=== PATIENT | female | born 1980 | race Caucasian/White ===

== ENCOUNTER 2017-01-19 09:54 | Emergency (ER) | payer OTHER ==
[~2017-01-19] VITALS: Ht 167.6 cm; Wt 113.6 kg
[~2017-01-19 09:54] MED LIST: /CIPR75TA OR; /RANI15TA PO; ACET500T PO; ACET50TAOT PO; ADVI200T PO; ALBU17IN INH; ALBU17IN2 INH; AMBI10TA PO; ATIV0.5T3 PO; Ativan PO; BIRTH CONTROL PILL PO; BRIN10TA PO; BRIN20TA PO; CELE20TA; CELE20TA PO; CELE40TA; CETI10TA PO; CLIN150C14 PO; DEPA250T2 PO; DOXY150C PO; FLEXERIL; GABA-283 PO; GABA300T; GABA600T3; GABA600T3 PO; GABA800T PO; HYDR-3363 PO; HYDR50TA70 PO; LEXA1TAB PO; LIMBREL PO; LYRI150C PO; MOTR200T44 PO; NECON PO; OMEP20CA3 PO; OMEP40CA2 PO; PERC5TAB12 PO; PREG100CA PO; RANI150T PO; RANI15TA PO; ROBA750T; RYZOLT; SAVELLA PO; VIC; VICO5TAB OR; VISTARIL PO; YAZ3TAB2; ZITHTAB PO; [UNRECOGNIZED DRUG - OTHER]; [UNRECOGNIZED DRUG - REMARK] PO
[2017-01-19] MEDS ORDERED: ZYPR10TA PO (10:13)
[2017-01-19] MEDS ORDERED: PRAZ2CAP PO (10:13)
[2017-01-19] MEDS ORDERED: MIRT15TA3 PO (10:13)
[2017-01-19] MEDS ORDERED: SYNT50TA PO (10:13)
[2017-01-19] MEDS ORDERED: NAPR500T PO (10:13)
[2017-01-19] MEDS ORDERED: PRIL20CA9 PO (10:13)
[2017-01-19] MEDS ORDERED: atarax (10:13)
[2017-01-19] MEDS ORDERED: CLAR1TAB2 PO (10:13)
[2017-01-19] MEDS ORDERED: PROZ10CA7 PO (10:13)
[2017-01-19 11:41] LABS: BASO # 0.1 K/mm3 (0.0-0.2); BASO % 1.2 % (0.0-1.0); EOS # 0.2 K/mm3 (0.0-0.50); EOS % 2.9 % (0.0-3.0); LARGE UNSTAINED CELL # 0.4 K/mm3 (0.0-0.4); LARGE UNSTAINED CELL % 5.8 % (0.0-4.0); LYMPH # 1.5 K/mm3 (1.5-4.5); LYMPH % 20.8 % (24.0-44.0); MEAN CORPUSCULAR HEMOGLOBIN 29.2 pg (27.0-33.0); MEAN CORPUSCULAR HGB CONC 33.8 g/dl (32.0-36.5); MEAN CORPUSCULAR VOLUME 86.3 fl (80.0-96.0); MONO # 0.5 K/mm3 (0.0-0.8); MONO % 6.9 % (0.0-5.0); NEUTROPHILS # 4.4 K/mm3 (1.8-7.7); NEUTROPHILS % 62.4 % (36.0-66.0); PLATELET COUNT, AUTOMATED 444 k/mm3 (150-450); RED CELL DISTRIBUTION WIDTH 14.8 % (11.5-14.5); WHITE BLOOD COUNT 7.1 K/mm3 (4.0-10.0)
[2017-01-19 12:22] LABS: ALBUMIN 3.6 GM/DL (3.2-5.2); ALBUMIN/GLOBULIN RATIO 1.24 (1.00-1.93); ALKALINE PHOSPHATASE 93 U/L (45-117); ALT/SGPT 33 U/L (12-78); AST/SGOT 22 U/L (15-37); BILIRUBIN,DIRECT < 0.1 MG/DL (0.0-0.2); BILIRUBIN,TOTAL 0.2 MG/DL (0.2-1.0); FREE T4 0.79 NG/DL (0.76-1.46); TOTAL PROTEIN 6.5 GM/DL (6.4-8.2)
[2017-01-19 14:00] LABS: METHADONE URINE NEGATIVE (NEGATIVE)
[2017-01-19 14:02] VITALS: BP 112/71
[2017-01-19] MEDS ORDERED: LEVO75TA4 PO (14:09)
--- NOTE | 2017-01-20 09:15 | ECGEPIP ---
Stationary ECG Study [facility] - ED Test Date: 2017-01-19 Pat Name: ROCÍO CLEANING Department: Room: - Gender: F [employer] Trimmer: marquis : [id number] Requested By: Krishna Whitaker Order Number: [id number] Reading MD: Loida Jacob Measurements Intervals [place] Rate: 90 P: 32 PA: 155 QRS: -1 QRSD: 85 T: 18 QT: 348 QTc: 427 Interpretive Statements SINUS RHYTHM LOW QRS VOLTAGE IN PRECORDIAL LEADS PATTERN CONSISTENT WITH PULMONARY DISEASE MINIMAL VOLTAGE CRITERIA FOR LVH, CONSIDER NORMAL VARIANT INCREASED RATE 05/20/16 Electronically Signed On 01-20-2017 9:15:24 EDT by Loida Jacob
== END 2017-01-19 14:30 | disposition home or self-care (01) ==
LOC: M ED 10:31
DX: E03.9 Hypothyroidism, unspecified (principal); E66.9 Obesity, unspecified; F19.90 Other psychoactive substance use, unspecified, uncomplicated; Z95.0 Presence of cardiac pacemaker; Z79.899 Other long term (current) drug therapy; Z88.1 Allergy status to other antibiotic agents; Z88.5 Allergy status to narcotic agent; Z91.040 Latex allergy status; Z88.0 Allergy status to penicillin; Z88.8 Allergy status to other drugs, medicaments and biological substances

== ENCOUNTER → 2017-02-18 | Outpatient (CLI) | payer OTHER ==
[~2017-02-18] MED LIST changes: +CLAR1TAB2 PO; +LEVO75TA4 PO; +MIRT15TA3 PO; +NAPR500T PO; +PRAZ2CAP PO; +PRIL20CA9 PO; +PROZ10CA7 PO; +SYNT50TA PO; +ZYPR10TA PO; +atarax
== END ==
LOC: M WUC 14:07
PROVIDERS: ATTEND Psychiatry & Neurology Psychiatry
DX: Z51.81 Encounter for therapeutic drug level monitoring (principal)

== ENCOUNTER → 2017-03-03 | Outpatient (CLI) | payer OTHER | LOC: M WUC 09:13 | PROVIDERS: ATTEND Physician Assistant Medical | DX: E03.9 Hypothyroidism, unspecified (principal) ==

== ENCOUNTER → 2017-03-09 | Outpatient (CLI) | payer OTHER ==
--- NOTE | 2017-03-09 14:20 | REP ---
Left foot two views There are no comparisons : There is no fracture or dislocation. Mineralization and joint spaces are normal. There are no calcifications or foreign bodies. Impression: Negative left foot . Signed by Arcadio Mcghee MD 03/09/2017 02:11 P
== END ==
LOC: M WUC 13:38
PROVIDERS: ATTEND Surgery
DX: M79.672 Pain in left foot (principal)

== ENCOUNTER → 2017-03-31 | Outpatient (CLI) | payer OTHER | LOC: M WUC 13:20 | PROVIDERS: ATTEND Physician Assistant Medical | DX: E03.9 Hypothyroidism, unspecified (principal) ==

== ENCOUNTER → 2017-05-01 | Outpatient (CLI) | payer OTHER | LOC: M WUC 13:53 | PROVIDERS: ATTEND Psychiatry & Neurology Psychiatry | DX: Z51.81 Encounter for therapeutic drug level monitoring (principal) ==

== ENCOUNTER → 2020-08-27 | Outpatient (CLI) | payer MEDICAID ==
[~2020-08-27] MED LIST changes: -/RANI15TA PO; +ACET500T15 PO; -ACET50TAOT PO; -CLIN150C14 PO; +CLIN150C15 PO; -GABA-283 PO; +GABA-845 PO; -GABA800T PO; +GABA800T4 PO; +NAPR-837 PO; -NAPR500T PO; -OMEP40CA2 PO; +OMEP40CA97 PO; +RANI1TAB17 PO
== END ==
LOC: M OUTALCOH 08:19
PROVIDERS: ATTEND Psychiatry & Neurology Psychiatry
DX: Z03.89 Encounter for observation for other suspected diseases and conditions ruled out (principal)

== ENCOUNTER 2020-09-04 14:55 | Outpatient (RCR) | payer MEDICAID | END 2020-09-30 | LOC: M OUTALCOH 14:55 | PROVIDERS: ATTEND Psychiatry & Neurology Psychiatry | DX: F17.200 Nicotine dependence, unspecified, uncomplicated (principal); F11.10 Opioid abuse, uncomplicated ==

== ENCOUNTER 2020-09-16 20:23 | Emergency (ER) | payer MEDICAID, OTHER ==
[~2020-09-16] VITALS: Ht 165.1 cm; Wt 79.1 kg
--- OUTSIDE RECORDS SUMMARY | 2020-09-16 20:29 | CCD ---
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 Intraperitoneal space: Unremarkable. No free air.No drainable fluid collection. Vasculature: Unremarkable. No abdominal aortic aneurysm. Lymph nodes:Unremarkable. No enlarged lymph nodes. Bladder: Partially contracted. Reproductive: Uterus notidentified, correlate with surgical history. Bones/joints: Unremarkable. No acute fracture. Soft tissues:Unremarkable. IMPRESSION: Apparent thickening of the transverse and descending colon, probablyexaggerated by underdistention. Correlate for mild infectious/inflammatory colitis. Correlate clinically. Name Value Range Interpretation Code Description Data Tara rce(s) Supporting Document(s) ID Date Data Source [id number] 07/31/2019 05:53:00 PM [facility] PROCEDURE INFORMATION: Exam: XR Chest, 1 View Exam date and time: 07/31/2019 6:21 PM Age: 39 years old Clinical indication: Visit reason: Abd pain; TECHNIQUE: Imaging protocol: XR of the chestViews: 1 view. COMPARISON: No relevant prior studies available. FINDINGS: Tubes,catheters and devices: Permanent pacemaker. Lungs: Unremarkable. No consolidation. Pleural space:Unremarkable. No pleural effusion. No pneumothorax. Heart/Mediastinum: Unremarkable. No cardiomegaly.Bones/joints: No acute findings. IMPRESSION: No acute findings. Name Value Range Interpretation Code Description Data Tara rce(s) Supporting Document(s) Procedure Vital Signs ID Date Data Source UNK Name Value Range Interpretation Code Description Data Source(s) Body temperature 97.9 [degF] 0 - 200 Normal (applies to non-n umeric results) 97.9 [degF] [facility] Body temperature 36.6 Dodie 0 - 99.9 Normal (applies to non-n umeric results) 36.6 Dodie [facility] Diastolic blood pressure 76 mm[Hg] 0 - 999 Normal (applies to non-numeric results) 76 mm[Hg] [facility] Systolic blood pressure 107 mm[Hg] 0 - 999 Below low normal 107 mm [Hg] [facility] Oxygen saturation in Arterial blood by Pulse oximetry 97 % 0 - 999 Normal (applies to non-numeric results) 97 % [facility] tem Respiratory rate 17 0 - 999 Normal (applies to non-numeric results) 17 [facility] Heart rate 62 0 - 999 Normal (applies to non-numeric resul ts) 62 [facility] Body surface area Derived from formula 1.9 m2 1.9 m2 [facility] Body mass index (BMI) [Ratio] 31.6 kg/m2 31.6 k g/m2 [facility] Body weight 88.9 kg 88.9 kg [facility] Body height 167.64 cm 167.64 cm [facility] Patient Treatment Plan of Care Planned Activity Planned Date Details Description Data Source (s) Ciprofloxacin 500 MG Oral Tablet [Cipro] 07/31/2019 09:51:31 PM EST [facility]
[2020-09-16 21:01] VITALS: BP 155/66
[2020-09-16] MEDS ORDERED: NALOXONE 2MG/2ML SYRINGE (J2310 PER 1MG) IM STA (21:04)
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
[2020-09-16] MEDS ORDERED: ACETAMINOPHEN 325 MG TAB PO ONE (21:15)
== END 2020-09-16 21:20 | disposition home or self-care (01) ==
LOC: M ED 20:23
DX: T40.601A Poisoning by unspecified narcotics, accidental (unintentional), initial encounter (principal); X58.XXXA Exposure to other specified factors, initial encounter; Y92.89 Other specified places as the place of occurrence of the external cause; Z95.0 Presence of cardiac pacemaker; Z79.899 Other long term (current) drug therapy; Z88.0 Allergy status to penicillin; Z88.1 Allergy status to other antibiotic agents; Z88.5 Allergy status to narcotic agent; Z88.8 Allergy status to other drugs, medicaments and biological substances; Z91.040 Latex allergy status; Z87.891 Personal history of nicotine dependence
CPT/HCPCS: 96372; 99284; J2310

== ENCOUNTER 2020-09-19 13:37 | Outpatient (RCR) | payer MEDICAID | END 2020-09-30 | LOC: M OUTALCOH 13:37 | PROVIDERS: ATTEND Psychiatry & Neurology Psychiatry | DX: F17.200 Nicotine dependence, unspecified, uncomplicated (principal); F11.10 Opioid abuse, uncomplicated ==

== ENCOUNTER → 2020-09-19 | Outpatient (CLI) | payer MEDICAID | LOC: M OUTALCOH 08:17 | PROVIDERS: ATTEND Psychiatry & Neurology Psychiatry | DX: Z02.89 Encounter for other administrative examinations (principal) ==

== ENCOUNTER 2020-09-27 10:00 | Outpatient (RCR) | payer MEDICAID | END 2020-09-30 | LOC: M OUTALCOH 10:00 | PROVIDERS: ATTEND Psychiatry & Neurology Psychiatry | DX: F11.10 Opioid abuse, uncomplicated (principal); F17.200 Nicotine dependence, unspecified, uncomplicated ==

== ENCOUNTER → 2020-10-11 | Outpatient (CLI) | payer MEDICAID ==
[2020-10-11 14:36] LABS: BASO # 0.1 10^3/uL (0.0-0.2); BASO % 0.7 % (0.0-1.0); EOS # 0.1 10^3/uL (0.0-0.5); EOS % 0.7 % (0.0-3.0); HEMATOCRIT 42.5 % (36.0-47.0); HEMOGLOBIN 14.1 g/dl (12.0-15.5); LYMPH # 1.6 10^3/uL (1.5-5.0); LYMPH % 14.9 % (24.0-44.0); MEAN CORPUSCULAR HGB CONC 33.2 g/dl (32.0-36.5); MEAN CORPUSCULAR VOLUME 96.4 fl (80.0-96.0); MONO # 0.8 10^3/uL (0.0-0.8); MONO % 7.9 % (2.0-8.0); NEUTROPHILS # 8.1 10^3/uL (1.5-8.5); NEUTROPHILS % 75.4 % (36.0-66.0); PLATELET COUNT, AUTOMATED 313 10^3/uL (150-450); RED BLOOD COUNT 4.41 10^6/uL (4.00-5.40); WHITE BLOOD COUNT 10.7 10^3/uL (4.0-10.0)
[2020-10-11 15:05] LABS: HCG, SERUM QUALITATIVE NEGATIVE (NEGATIVE)
[2020-10-11 15:06] LABS: ALBUMIN 4.1 GM/DL (3.2-5.2); ALT/SGPT 14 U/L (12-78); BILIRUBIN,DIRECT 0.1 MG/DL (0.0-0.2); BILIRUBIN,TOTAL 0.3 MG/DL (0.2-1.0); BLOOD UREA NITROGEN 9 MG/DL (7-18); CARBON DIOXIDE LEVEL 25 MEQ/L (21-32); CHLORIDE LEVEL 111 MEQ/L (98-107); CHOLESTEROL LEVEL 139 MG/DL (<200); CHOLESTEROL RISK RATIO 2.673 (<5); CREATININE FOR GFR 0.81 MG/DL (0.55-1.30); GLOMERULAR FILTRATION RATE > 60.0 (>60); GLUCOSE, FASTING 89 MG/DL (70-100); HDL CHOLESTEROL 52 MG/DL (>40); LDL CHOLESTEROL 70 MG/DL (<100); NON-HDL-C 87 MG/DL; POTASSIUM SERUM 4.1 MEQ/L (3.5-5.1); SODIUM LEVEL 141 MEQ/L (136-145); TOTAL PROTEIN 7.1 GM/DL (6.4-8.2); TRIGLYCERIDES LEVEL 86 MG/DL (<150)
== END ==
LOC: M PLALAB 12:33
PROVIDERS: ATTEND Psychiatry & Neurology Psychiatry
DX: F17.200 Nicotine dependence, unspecified, uncomplicated (principal); F11.10 Opioid abuse, uncomplicated

== ENCOUNTER → 2020-10-31 | Outpatient (RCR) | payer MEDICAID | LOC: M OUTALCOH 10-01 13:04 | PROVIDERS: ATTEND Psychiatry & Neurology Psychiatry | DX: F11.10 Opioid abuse, uncomplicated (principal); F17.200 Nicotine dependence, unspecified, uncomplicated ==

== ENCOUNTER → 2020-11-05 | Outpatient (CLI) | payer MEDICAID, OTHER ==
[2020-11-05 19:04] LABS: ALBUMIN 4.2 GM/DL (3.2-5.2); ALT/SGPT 21 U/L (12-78); BILIRUBIN,DIRECT 0.1 MG/DL (0.0-0.2); BILIRUBIN,TOTAL 0.3 MG/DL (0.2-1.0); BLOOD UREA NITROGEN 7 MG/DL (7-18); CALCIUM LEVEL 9.4 MG/DL (8.5-10.1); CARBON DIOXIDE LEVEL 28 MEQ/L (21-32); CHLORIDE LEVEL 106 MEQ/L (98-107); CHOLESTEROL LEVEL 161 MG/DL (<200); CHOLESTEROL RISK RATIO 2.555 (<5); CREATININE FOR GFR 0.72 MG/DL (0.55-1.30); GLOMERULAR FILTRATION RATE > 60.0 (>60); GLUCOSE, FASTING 87 MG/DL (70-100); HDL CHOLESTEROL 63 MG/DL (>40); LDH LACTATE DEHYDROGENASE 174 U/L (84-246); LDL CHOLESTEROL 85 MG/DL (<100); NON-HDL-C 98 MG/DL; POTASSIUM SERUM 4.2 MEQ/L (3.5-5.1); SODIUM LEVEL 139 MEQ/L (136-145); THYROID STIMULATING HORMONE 0.966 uIU/ML (0.358-3.740); TOTAL PROTEIN 7.2 GM/DL (6.4-8.2); TRIGLYCERIDES LEVEL 63 MG/DL (<150)
== END ==
LOC: M PLALAB 13:54
PROVIDERS: ATTEND Internal Medicine Interventional Cardiology
DX: Z95.0 Presence of cardiac pacemaker (principal); I10 Essential (primary) hypertension; E78.5 Hyperlipidemia, unspecified; E03.9 Hypothyroidism, unspecified

== ENCOUNTER 2020-11-28 08:00 | Outpatient (RCR) | payer MEDICAID, OTHER | END 2020-11-30 | LOC: M OUTALCOH 08:00 | PROVIDERS: ATTEND Psychiatry & Neurology Psychiatry | DX: F11.10 Opioid abuse, uncomplicated (principal); F17.200 Nicotine dependence, unspecified, uncomplicated ==

== ENCOUNTER → 2022-03-06 | Outpatient (CLI) | payer OTHER ==
[~2022-03-06] MED LIST changes: -CLIN150C15 PO; +CLIN150C17 PO; +GABA-283 PO; -GABA-845 PO; +ISOVUE-300 61% 50ML VIAL As Ordered ONE; +LIDOCAINE 1% MDV 20ML VIAL As Ordered ONE; +OMEP40CA4 PO; -OMEP40CA97 PO
== END ==
LOC: M RADPRO 09:34
PROVIDERS: ATTEND Physician Assistant
DX: M24.10 Other articular cartilage disorders, unspecified site (principal); M25.561 Pain in right knee
CPT/HCPCS: 27369; 73580; 73701; Q9967

== ENCOUNTER → 2022-04-14 | Outpatient (REF) | payer OTHER ==
[~2022-04-14] MED LIST changes: -ISOVUE-300 61% 50ML VIAL As Ordered ONE; -LIDOCAINE 1% MDV 20ML VIAL As Ordered ONE
[2022-04-14 19:57] LABS: APPEARANCE, URINE MANUAL CLEAR (CLEAR); COLOR, URINE MANUAL DK YELLOW (YELLOW)
[2022-04-14 19:58] LABS: BILIRUBIN, URINE MANUAL NEGATIVE (NEGATIVE); BLOOD URINE MANUAL NEGATIVE (NEGATIVE); GLUCOSE, URINE (UA) MANUAL NEGATIVE (NEGATIVE); KETONE, URINE MANUAL NEGATIVE (NEGATIVE); LEUKOCYTE ESTERASE, URINE MAN TRACE (NEGATIVE); NITRITE, URINE MANUAL NEGATIVE (NEGATIVE); PROTEIN, URINE MANUAL TRACE mg/dL (NEGATIVE); SPECIFIC GRAVITY,URINE MANUAL 1.015 (1.002-1.035); UROBILINOGEN, URINE MANUAL NORMAL (NORMAL)
[2022-04-14 20:18] LABS: BACTERIA, URINE NONE SEEN; HYALINE CAST, URINE NONE SEEN /lpf (0-1); MUCUS, URINE MOD AMOUNT (NEGATIVE); RBC, URINE NONE SEEN /hpf (0-3); SQUAMOUS EPITHELIAL CELL URINE SMALL AMOUNT /hpf (SMALL AMT)
== END ==
LOC: M SMT 16:40
PROVIDERS: ATTEND Urology
DX: R32 Unspecified urinary incontinence (principal)

== ENCOUNTER → 2022-05-11 | Outpatient (CLI) | payer MEDICAID, OTHER ==
[~2022-05-11] MED LIST changes: +ADDE12.5 PO; +ALBU8.5H; +ATEN50TA2 PO; +CLON0.2T PO; +GABA600T4 PO; +MULT-90 PO; +OXYB10TA23 PO; +SUBO8MIS SL; +TIZA10TA PO
== END ==
LOC: M LABSMTC 10:50
PROVIDERS: ATTEND Anesthesiology
DX: Z01.812 Encounter for preprocedural laboratory examination (principal); Z20.822 Contact with and (suspected) exposure to COVID-19

== ENCOUNTER 2022-05-14 09:24 | Day surgery (SDC) | payer OTHER ==
[~2022-05-14] VITALS: Ht 165.1 cm; Wt 67.5 kg
[~2022-05-14 09:24] MED LIST changes: +NS 1,000 ML IV ONE
[2022-05-14] MEDS ORDERED: propofoL 200 MG/20 ML VIAL As Ordered ONE (10:01)
[2022-05-14] MEDS ORDERED: LIDOCAINE 2% 100MG/5ML SDV (FOR ANES.) As Ordered ONE (10:01)
[2022-05-14] MEDS ORDERED: fentaNYL 100 MCG/2 ML INJECTION As Ordered ONE (10:13)
[2022-05-14] MEDS ORDERED: ePHEDrine SULFATE 25 MG/5 ML(5MG/ML) SYRINGE As Ordered ONE (10:41)
[2022-05-14 11:23] VITALS: BP 140/79
== END 2022-05-14 11:47 | disposition home or self-care (01) ==
LOC: M OPP 09:24
PROVIDERS: ATTEND Internal Medicine Gastroenterology
DX: Z12.11 Encounter for screening for malignant neoplasm of colon (principal); Z86.010 Personal history of colon polyps; Z80.0 Family history of malignant neoplasm of digestive organs; K22.89 Other specified disease of esophagus; K44.9 Diaphragmatic hernia without obstruction or gangrene; K22.70 Barrett's esophagus without dysplasia; Z79.891 Long term (current) use of opiate analgesic; Z79.899 Other long term (current) drug therapy; Z88.0 Allergy status to penicillin; Z88.1 Allergy status to other antibiotic agents; Z88.8 Allergy status to other drugs, medicaments and biological substances; Z80.41 Family history of malignant neoplasm of ovary; Z80.49 Family history of malignant neoplasm of other genital organs; Z95.5 Presence of coronary angioplasty implant and graft; J45.909 Unspecified asthma, uncomplicated
CPT/HCPCS: 43239; 45378; 88305; J3010

== ENCOUNTER → 2022-07-09 | Outpatient (CLI) | payer OTHER ==
[~2022-07-09] MED LIST changes: -NS 1,000 ML IV ONE
[2022-07-09 15:18] LABS: BASO # 0.1 10^3/uL (0.0-0.2); BASO % 0.9 % (0.0-1.0); EOS # 0.3 10^3/uL (0.0-0.5); EOS % 4.4 % (0.0-3.0); HEMATOCRIT 36.7 % (36.0-47.0); HEMOGLOBIN 12.1 g/dl (12.0-15.5); LYMPH # 1.9 10^3/uL (1.5-5.0); LYMPH % 29.8 % (24.0-44.0); MEAN CORPUSCULAR HEMOGLOBIN 30.8 pg (27.0-33.0); MEAN CORPUSCULAR VOLUME 93.4 fl (80.0-96.0); MONO # 0.7 10^3/uL (0.0-0.8); MONO % 10.1 % (2.0-8.0); NEUTROPHILS # 3.5 10^3/uL (1.5-8.5); NEUTROPHILS % 54.6 % (36.0-66.0); PLATELET COUNT, AUTOMATED 252 10^3/uL (150-450); RED BLOOD COUNT 3.93 10^6/uL (4.00-5.40); WHITE BLOOD COUNT 6.4 10^3/uL (4.0-10.0)
[2022-07-09 15:52] LABS: ALBUMIN 3.1 G/DL (3.2-5.2); ALKALINE PHOSPHATASE 82 U/L (46-116); ALT/SGPT 11 U/L (7.0-40); AST/SGOT 18 U/L (<34); BILIRUBIN,TOTAL 0.2 MG/DL (0.3-1.2); BLOOD UREA NITROGEN 8 MG/DL (9-23); CALCIUM LEVEL 8.8 MG/DL (8.5-10.1); CARBON DIOXIDE LEVEL 30 MMOL/L (20-31); CHLORIDE LEVEL 107 MMOL/L (98-107); CHOLESTEROL LEVEL 143 MG/DL (<200); CHOLESTEROL RISK RATIO 3.11 (<5); CREATININE FOR GFR 0.72 MG/DL (0.55-1.30); GLOMERULAR FILTRATION RATE > 60.0 (>58); GLUCOSE, FASTING 91 MG/DL (60-100); HDL CHOLESTEROL 45.9 MG/DL (>40); LDL CHOLESTEROL 82.5 MG/DL (<100); NON-HDL-C 97 MG/DL; POTASSIUM SERUM 4.4 MMOL/L (3.5-5.1); SODIUM LEVEL 141 MMOL/L (136-145); THYROID STIMULATING HORMONE 5.219 uIU/ML (0.55-4.78); TOTAL PROTEIN 5.9 G/DL (5.7-8.2); TRIGLYCERIDES LEVEL 73 MG/DL (<150)
[2022-07-09 15:54] LABS: TOTAL 25(OH) VITAMIN D 49.4 NG/ML (20.0-100.0)
== END ==
LOC: M PLALAB 11:21
PROVIDERS: ATTEND Nurse Practitioner Adult Health
DX: E87.6 Hypokalemia (principal); E87.5 Hyperkalemia; R03.0 Elevated blood-pressure reading, without diagnosis of hypertension

== ENCOUNTER → 2022-07-09 | Outpatient (CLI) | payer OTHER ==
[2022-07-09 15:18] LABS: BASO # 0.1 10^3/uL (0.0-0.2); BASO % 0.8 % (0.0-1.0); EOS # 0.3 10^3/uL (0.0-0.5); EOS % 4.3 % (0.0-3.0); HEMATOCRIT 37.2 % (36.0-47.0); HEMOGLOBIN 12.1 g/dl (12.0-15.5); LYMPH # 2.1 10^3/uL (1.5-5.0); LYMPH % 31.4 % (24.0-44.0); MEAN CORPUSCULAR HEMOGLOBIN 30.5 pg (27.0-33.0); MEAN CORPUSCULAR HGB CONC 32.5 g/dl (32.0-36.5); MEAN CORPUSCULAR VOLUME 93.7 fl (80.0-96.0); MONO # 0.6 10^3/uL (0.0-0.8); MONO % 9.5 % (2.0-8.0); NEUTROPHILS # 3.5 10^3/uL (1.5-8.5); NEUTROPHILS % 53.8 % (36.0-66.0); PLATELET COUNT, AUTOMATED 257 10^3/uL (150-450); RED BLOOD COUNT 3.97 10^6/uL (4.00-5.40); WHITE BLOOD COUNT 6.5 10^3/uL (4.0-10.0)
[2022-07-09 15:48] LABS: ERYTHROCYTE SEDIMENTATION RATE 10 mm/hr (0-20); URIC ACID 4.7 MG/DL (3.1-7.8)
[2022-07-09 16:20] LABS: RHEUMATOID FACTOR QUANT < 3.5 IU/ML (<14)
[2022-07-10 15:08] LABS: ANTINUCLEAR ANTIBODIES DIRECT Negative (Negative)
== END ==
LOC: M PLALAB 11:18
PROVIDERS: ATTEND Orthopaedic Surgery
DX: M17.11 Unilateral primary osteoarthritis, right knee (principal)

== ENCOUNTER → 2022-08-22 | Outpatient (CLI) | payer OTHER ==
[~2022-08-22] MED LIST changes: +GASTROGRAFIN SOLUTION 30ML As Ordered ONE; +ISOVUE-370 76% 100ML VIAL As Ordered ONE
== END ==
LOC: M RAD 10:02
PROVIDERS: ATTEND Nurse Practitioner Family
DX: R10.10 Upper abdominal pain, unspecified (principal); Z90.49 Acquired absence of other specified parts of digestive tract

== ENCOUNTER → 2022-09-01 | Outpatient (CLI) | payer OTHER ==
[~2022-09-01] MED LIST changes: -GASTROGRAFIN SOLUTION 30ML As Ordered ONE; -ISOVUE-370 76% 100ML VIAL As Ordered ONE
[2022-09-01 18:33] LABS: BASO # 0.1 10^3/uL (0.0-0.2); BASO % 0.8 % (0.0-1.0); EOS # 0.2 10^3/uL (0.0-0.5); EOS % 2.3 % (0.0-3.0); HEMATOCRIT 33.5 % (36.0-47.0); LYMPH # 2.2 10^3/uL (1.5-5.0); LYMPH % 27.1 % (24.0-44.0); MEAN CORPUSCULAR HEMOGLOBIN 30.8 pg (27.0-33.0); MEAN CORPUSCULAR HGB CONC 32.8 g/dl (32.0-36.5); MEAN CORPUSCULAR VOLUME 93.8 fl (80.0-96.0); MONO # 0.7 10^3/uL (0.0-0.8); MONO % 8.8 % (2.0-8.0); NEUTROPHILS # 4.9 10^3/uL (1.5-8.5); NEUTROPHILS % 60.6 % (36.0-66.0); PLATELET COUNT, AUTOMATED 213 10^3/uL (150-450); RED BLOOD COUNT 3.57 10^6/uL (4.00-5.40)
[2022-09-01 18:58] LABS: TOTAL IRON BINDING CAPACITY 246 UG/DL (250-425)
[2022-09-01 19:00] LABS: IRON (FE) 45 UG/DL (50-170); PERCENT SATURATION 18.3 % (13.2-45.0)
[2022-09-01 19:01] LABS: ALBUMIN 3.4 G/DL (3.2-5.2); ALKALINE PHOSPHATASE 90 U/L (46-116); ALT/SGPT 19 U/L (7.0-40); AST/SGOT 25 U/L (<34); BILIRUBIN,TOTAL 0.2 MG/DL (0.3-1.2); BLOOD UREA NITROGEN 6 MG/DL (9-23); CALCIUM LEVEL 9.1 MG/DL (8.5-10.1); CARBON DIOXIDE LEVEL 27 MMOL/L (20-31); CHLORIDE LEVEL 104 MMOL/L (98-107); CHOLESTEROL LEVEL 156 MG/DL (<200); CHOLESTEROL RISK RATIO 2.85 (<5); CREATININE FOR GFR 0.76 MG/DL (0.55-1.30); FERRITIN 120.7 NG/ML (7.3-270.7); FOLATE 15.31 NG/ML (>5.4); FREE T3 2.7 PG/ML (2.3-4.2); FREE T4 0.71 NG/DL (0.89-1.76); GLOMERULAR FILTRATION RATE > 60.0 (>58); GLUCOSE, FASTING 79 MG/DL (60-100); HDL CHOLESTEROL 54.7 MG/DL (>40); LDL CHOLESTEROL 85.9 MG/DL (<100); NON-HDL-C 101 MG/DL; POTASSIUM SERUM 4.3 MMOL/L (3.5-5.1); SODIUM LEVEL 137 MMOL/L (136-145); THYROID STIMULATING HORMONE 9.247 uIU/ML (0.55-4.78); TOTAL PROTEIN 6.6 G/DL (5.7-8.2); TRIGLYCERIDES LEVEL 77 MG/DL (<150); VITAMIN B12 LEVEL 724 PG/ML (211-911)
[2022-09-01 20:23] LABS: HEPATITIS B CORE ANTIBODY IGM NEGATIVE (NEGATIVE); HEPATITIS B SURFACE ANTIGEN NEGATIVE (NEGATIVE); HIV 1&2 SCREEN CENTAUR NEGATIVE (NEGATIVE)
[2022-09-01 20:29] LABS: THYROID PEROXIDASE ANTIBODY > 1300.0 U/ML (<60.0)
== END ==
LOC: M PLALAB 15:01
PROVIDERS: ATTEND Nurse Practitioner Family
DX: E78.5 Hyperlipidemia, unspecified (principal); R03.0 Elevated blood-pressure reading, without diagnosis of hypertension; R53.83 Other fatigue; Z72.51 High risk heterosexual behavior

== ENCOUNTER → 2022-09-15 | Outpatient (CLI) | payer OTHER ==
[~2022-09-15] MED LIST changes: +ADV100INH INH; +BUPR15TA PO; +BUSP15TA47 PO; +CETI5SOL3 PO; +FLUT1INH2 IN; +LEVO50CA PO
[2022-09-15 15:52] LABS: BASO # 0.1 10^3/uL (0.0-0.2); BASO % 0.9 % (0.0-1.0); EOS # 0.3 10^3/uL (0.0-0.5); EOS % 3.5 % (0.0-3.0); HEMATOCRIT 36.5 % (36.0-47.0); HEMOGLOBIN 11.8 g/dl (12.0-15.5); LYMPH # 2.2 10^3/uL (1.5-5.0); MEAN CORPUSCULAR HEMOGLOBIN 30.6 pg (27.0-33.0); MEAN CORPUSCULAR HGB CONC 32.3 g/dl (32.0-36.5); MEAN CORPUSCULAR VOLUME 94.8 fl (80.0-96.0); MONO # 0.8 10^3/uL (0.0-0.8); MONO % 10.3 % (2.0-8.0); NEUTROPHILS # 4.1 10^3/uL (1.5-8.5); NEUTROPHILS % 55.8 % (36.0-66.0); PLATELET COUNT, AUTOMATED 284 10^3/uL (150-450); RED BLOOD COUNT 3.85 10^6/uL (4.00-5.40); WHITE BLOOD COUNT 7.4 10^3/uL (4.0-10.0)
[2022-09-15 16:22] LABS: ALBUMIN 3.4 G/DL (3.2-5.2); ALKALINE PHOSPHATASE 74 U/L (46-116); ALT/SGPT 16 U/L (7.0-40); AST/SGOT 11 U/L (<34); BILIRUBIN,TOTAL 0.2 MG/DL (0.3-1.2); BLOOD UREA NITROGEN 11 MG/DL (9-23); CALCIUM LEVEL 8.9 MG/DL (8.5-10.1); CARBON DIOXIDE LEVEL 29 MMOL/L (20-31); CHLORIDE LEVEL 107 MMOL/L (98-107); CREATININE FOR GFR 0.87 MG/DL (0.55-1.30); GLOMERULAR FILTRATION RATE > 60.0 (>58); GLUCOSE, FASTING 63 MG/DL (60-100); POTASSIUM SERUM 4.3 MMOL/L (3.5-5.1); SODIUM LEVEL 137 MMOL/L (136-145); TOTAL PROTEIN 6.2 G/DL (5.7-8.2)
== END ==
LOC: M PLALAB 13:56
PROVIDERS: ATTEND Nurse Practitioner Family
DX: Z01.818 Encounter for other preprocedural examination (principal); E78.5 Hyperlipidemia, unspecified; Z95.0 Presence of cardiac pacemaker

== ENCOUNTER → 2022-09-17 | Outpatient (CLI) | payer OTHER | LOC: M LABSMTC 11:28 | PROVIDERS: ATTEND Anesthesiology | DX: Z01.812 Encounter for preprocedural laboratory examination (principal); Z11.52 Encounter for screening for COVID-19 ==

== ENCOUNTER 2022-09-22 10:00 | Day surgery (SDC) | payer OTHER ==
[~2022-09-22] VITALS: Ht 167.6 cm; Wt 60.8 kg
[2022-09-22] MEDS ORDERED: LR 1,000 ML IV SCH ×2 (10:15→11:35)
[2022-09-22] MEDS ORDERED: CIPROFLOXACIN 400 MG in IV 1 EA IV ONE (10:25)
[2022-09-22] MEDS ORDERED: ISOVUE-300 61% 100ML VIAL As Ordered ONE ×2 (10:27→10:28)
[2022-09-22] MEDS ORDERED: propofoL 200 MG/20 ML VIAL As Ordered ONE (11:05)
[2022-09-22] MEDS ORDERED: ONDANSETRON 4MG 2ML VIAL As Ordered ONE (11:05)
[2022-09-22] MEDS ORDERED: MIDAZOLAM INJ 2MG/2ML VIAL As Ordered ONE (11:05)
[2022-09-22] MEDS ORDERED: fentaNYL 100 MCG/2 ML INJECTION As Ordered ONE (11:05)
[2022-09-22] MEDS ORDERED: LIDOCAINE 2% 100MG/5ML SDV (FOR ANES.) As Ordered ONE (11:05)
[2022-09-22] MEDS ORDERED: ePHEDrine SULFATE 25 MG/5 ML(5MG/ML) SYRINGE As Ordered ONE (11:15)
[2022-09-22] MEDS ORDERED: HYDROMORPHONE HCL 0.5 MG/ 0.5 ML SYRINGE IV PRN (11:35)
[2022-09-22] MEDS ORDERED: ONDANSETRON 4MG 2ML VIAL IV PRN (11:35)
[2022-09-22] MEDS ORDERED: oxyCODONE 5MG TAB PO PRN (11:35)
[2022-09-22] MEDS ORDERED: CIPR-249 PO (11:40)
[2022-09-22] MEDS: fentaNYL 100 MCG/2 ML INJECTION IV PRN ×4 (12:34→12:55)
[2022-09-22] MEDS ORDERED: KETOROLAC 30 MG/ML 1ML VIAL IV ONE (13:25)
[2022-09-22 13:46] VITALS: BP 111/68
== END 2022-09-22 14:10 | disposition home or self-care (01) ==
LOC: M SDC 10:00
PROVIDERS: ATTEND Urology
DX: N39.3 Stress incontinence (female) (male) (principal); F41.9 Anxiety disorder, unspecified; J45.20 Mild intermittent asthma, uncomplicated; M51.9 Unspecified thoracic, thoracolumbar and lumbosacral intervertebral disc disorder; Z95.0 Presence of cardiac pacemaker; F32.A Depression, unspecified; M54.2 Cervicalgia; N80.9 Endometriosis, unspecified; M79.7 Fibromyalgia; K21.9 Gastro-esophageal reflux disease without esophagitis; K58.9 Irritable bowel syndrome, unspecified; E78.5 Hyperlipidemia, unspecified; K22.70 Barrett's esophagus without dysplasia; E03.9 Hypothyroidism, unspecified; F90.9 Attention-deficit hyperactivity disorder, unspecified type; F17.210 Nicotine dependence, cigarettes, uncomplicated; F11.21 Opioid dependence, in remission; Z79.899 Other long term (current) drug therapy; Z79.51 Long term (current) use of inhaled steroids; Z79.890 Hormone replacement therapy
CPT/HCPCS: 52351; 57287; 74420; 88300; C1769; J1100; J2250; J2405; J3010

== ENCOUNTER → 2022-09-26 | Outpatient (CLI) | payer OTHER ==
[~2022-09-26] MED LIST changes: +ADDE30CA3 PO; -ALBU8.5H; +ALBU8.5H INH; +AMOX125C PO; +CIPR-249 PO
== END ==
LOC: M PAIN 13:00
PROVIDERS: ATTEND Nurse Practitioner Family
DX: M96.1 Postlaminectomy syndrome, not elsewhere classified (principal); M79.10 Myalgia, unspecified site; M53.3 Sacrococcygeal disorders, not elsewhere classified; G89.29 Other chronic pain; J45.909 Unspecified asthma, uncomplicated; K21.9 Gastro-esophageal reflux disease without esophagitis; M79.7 Fibromyalgia; E07.9 Disorder of thyroid, unspecified; F17.210 Nicotine dependence, cigarettes, uncomplicated; Z95.0 Presence of cardiac pacemaker; Z86.59 Personal history of other mental and behavioral disorders; Z88.1 Allergy status to other antibiotic agents; Z88.5 Allergy status to narcotic agent; Z88.8 Allergy status to other drugs, medicaments and biological substances; Z91.040 Latex allergy status; Z79.890 Hormone replacement therapy; Z79.891 Long term (current) use of opiate analgesic; Z79.899 Other long term (current) drug therapy

== ENCOUNTER → 2022-09-29 | Outpatient (CLI) | payer OTHER | LOC: M PLAIMG 12:12 | PROVIDERS: ATTEND Nurse Practitioner Family | DX: M96.1 Postlaminectomy syndrome, not elsewhere classified (principal); M35.3 Polymyalgia rheumatica ==

== ENCOUNTER → 2022-10-01 | Outpatient (CLI) | payer OTHER | LOC: M LABSMTC 09:17 | PROVIDERS: ATTEND Anesthesiology | DX: Z01.812 Encounter for preprocedural laboratory examination (principal) ==

== ENCOUNTER 2022-10-06 10:34 | Day surgery (SDC) | payer OTHER ==
[~2022-10-06] VITALS: Ht 167.6 cm; Wt 62.5 kg
[~2022-10-06 10:34] MED LIST changes: +NS 1,000 ML IV ONE
[2022-10-06] MEDS ORDERED: propofoL 200 MG/20 ML VIAL As Ordered ONE (12:06)
[2022-10-06] MEDS ORDERED: LIDOCAINE 2% 100MG/5ML SDV (FOR ANES.) As Ordered ONE (12:06)
[2022-10-06] MEDS ORDERED: PHENYLephrine 500MCG 5ML (100MCG/ML) SYRINGE As Ordered ONE (12:20)
[2022-10-06 12:42] VITALS: BP 121/75
== END 2022-10-06 12:59 | disposition home or self-care (01) ==
LOC: M OPP 10:34
PROVIDERS: ATTEND Internal Medicine Gastroenterology
DX: K64.0 First degree hemorrhoids (principal); K59.04 Chronic idiopathic constipation; K22.70 Barrett's esophagus without dysplasia; Z85.038 Personal history of other malignant neoplasm of large intestine; Z86.010 Personal history of colon polyps; Z80.0 Family history of malignant neoplasm of digestive organs; J45.909 Unspecified asthma, uncomplicated; E03.9 Hypothyroidism, unspecified; M79.7 Fibromyalgia; F17.200 Nicotine dependence, unspecified, uncomplicated; Z79.891 Long term (current) use of opiate analgesic; Z79.899 Other long term (current) drug therapy; Z88.1 Allergy status to other antibiotic agents; Z88.5 Allergy status to narcotic agent; Z88.8 Allergy status to other drugs, medicaments and biological substances; Z91.040 Latex allergy status; Z80.3 Family history of malignant neoplasm of breast; Z80.41 Family history of malignant neoplasm of ovary; Z80.49 Family history of malignant neoplasm of other genital organs
CPT/HCPCS: 45378; J2370

== ENCOUNTER → 2022-11-17 | Outpatient (CLI) | payer OTHER ==
[~2022-11-17] MED LIST changes: -NS 1,000 ML IV ONE
== END ==
LOC: M PAIN 15:15
PROVIDERS: ATTEND Nurse Practitioner Family
DX: M96.1 Postlaminectomy syndrome, not elsewhere classified (principal); M79.10 Myalgia, unspecified site; M53.3 Sacrococcygeal disorders, not elsewhere classified; J45.909 Unspecified asthma, uncomplicated; M54.50 Low back pain, unspecified; F32.A Depression, unspecified; K21.9 Gastro-esophageal reflux disease without esophagitis; M79.7 Fibromyalgia; F41.9 Anxiety disorder, unspecified; F17.210 Nicotine dependence, cigarettes, uncomplicated; N32.9 Bladder disorder, unspecified; K58.9 Irritable bowel syndrome, unspecified; M54.2 Cervicalgia; D64.9 Anemia, unspecified; E07.9 Disorder of thyroid, unspecified; Z95.0 Presence of cardiac pacemaker; R00.0 Tachycardia, unspecified; F90.9 Attention-deficit hyperactivity disorder, unspecified type; Z79.890 Hormone replacement therapy; Z79.899 Other long term (current) drug therapy; Z88.1 Allergy status to other antibiotic agents; Z88.5 Allergy status to narcotic agent; Z88.8 Allergy status to other drugs, medicaments and biological substances; Z91.040 Latex allergy status

== ENCOUNTER → 2023-03-06 | Outpatient (CLI) | payer OTHER ==
[~2023-03-06] MED LIST changes: -GABA-283 PO; +GABA-284 PO
== END ==
LOC: M PLALAB 11:38
DX: Z53.9 Procedure and treatment not carried out, unspecified reason (principal)

== ENCOUNTER → 2023-07-22 | Outpatient (CLI) | payer OTHER | LOC: M WUC 13:55 | PROVIDERS: ATTEND Student in an Organized Health Care Education/Training Program | DX: M25.531 Pain in right wrist (principal) ==

== ENCOUNTER → 2023-09-30 | Outpatient (CLI) | payer OTHER ==
[2023-09-30 15:40] LABS: BASO # 0.1 10^3/uL (0.0-0.2); BASO % 1.2 % (0.0-1.0); EOS # 0.2 10^3/uL (0.0-0.5); EOS % 2.7 % (0.0-3.0); HEMATOCRIT 36.9 % (36.0-47.0); HEMOGLOBIN 12.2 g/dl (12.0-15.5); LYMPH # 1.8 10^3/uL (1.5-5.0); LYMPH % 31.2 % (24.0-44.0); MEAN CORPUSCULAR HEMOGLOBIN 30.6 pg (27.0-33.0); MEAN CORPUSCULAR HGB CONC 33.1 g/dl (32.0-36.5); MEAN CORPUSCULAR VOLUME 92.5 fl (80.0-96.0); MONO # 0.5 10^3/uL (0.0-0.8); NEUTROPHILS # 3.2 10^3/uL (1.5-8.5); NEUTROPHILS % 56.7 % (36.0-66.0); PLATELET COUNT, AUTOMATED 230 10^3/uL (150-450); RED BLOOD COUNT 3.99 10^6/uL (4.00-5.40); WHITE BLOOD COUNT 5.7 10^3/uL (4.0-10.0)
[2023-09-30 16:25] LABS: THYROID STIMULATING HORMONE 6.576 uIU/ML (0.55-4.78)
[2023-09-30 16:26] LABS: TOTAL 25(OH) VITAMIN D 21.3 NG/ML (20.0-100.0)
[2023-09-30 17:09] LABS: ALBUMIN 3.7 G/DL (3.2-5.2); ALKALINE PHOSPHATASE 89 U/L (46-116); ALT/SGPT 19 U/L (7.0-40); AST/SGOT 16 U/L (<34); BILIRUBIN,TOTAL < 0.2 MG/DL (0.3-1.2); BLOOD UREA NITROGEN 10 MG/DL (9-23); CALCIUM LEVEL 9.2 MG/DL (8.5-10.1); CARBON DIOXIDE LEVEL 29 MMOL/L (20-31); CHLORIDE LEVEL 104 MMOL/L (98-107); CHOLESTEROL LEVEL 172 MG/DL (<200); CHOLESTEROL RISK RATIO 3.07 (<5); CREATININE FOR GFR 0.89 MG/DL (0.55-1.30); GLOMERULAR FILTRATION RATE > 60.0 (>58); GLUCOSE, FASTING 79 MG/DL (60-100); HDL CHOLESTEROL 55.9 MG/DL (>40); LDL CHOLESTEROL 94.5 MG/DL (<100); NON-HDL-C 116.1 MG/DL; POTASSIUM SERUM 4.2 MMOL/L (3.5-5.1); SODIUM LEVEL 141 MMOL/L (136-145); TOTAL PROTEIN 6.7 G/DL (5.7-8.2); TRIGLYCERIDES LEVEL 108 MG/DL (<150)
[2023-09-30 18:10] LABS: HEMOGLOBIN A1c 5.2 % (4.0-6.0)
== END ==
LOC: M PLALAB 13:41
PROVIDERS: ATTEND Nurse Practitioner Family
DX: J45.20 Mild intermittent asthma, uncomplicated (principal); K21.9 Gastro-esophageal reflux disease without esophagitis

== ENCOUNTER → 2024-01-05 | Outpatient (CLI) | payer OTHER ==
[2024-01-05 19:50] LABS: THYROID STIMULATING HORMONE 5.096 uIU/ML (0.55-4.78)
[2024-01-05 19:52] LABS: PROGESTERONE 0.43 NG/ML
== END ==
LOC: M PLALAB 16:10
PROVIDERS: ATTEND Nurse Practitioner Family
DX: E03.9 Hypothyroidism, unspecified (principal); K59.00 Constipation, unspecified

== ENCOUNTER → 2024-05-09 | Outpatient (REF) | payer OTHER ==
[~2024-05-09] MED LIST changes: +GABA-1490 PO; +GABA-1635 PO; -GABA600T4 PO; -GABA800T4 PO
[2024-05-09 18:42] LABS: APPEARANCE, URINE CLEAR (CLEAR); BACTERIA, URINE AUTO NEGATIVE (NEGATIVE); BILIRUBIN, URINE AUTO NEGATIVE (NEGATIVE); BLOOD, URINE BLOOD NEGATIVE (NEGATIVE); COLOR, URINE YELLOW (YELLOW); GLUCOSE, URINE (UA) AUTO NEGATIVE (NEGATIVE); KETONE, URINE AUTO NEGATIVE (NEGATIVE); LEUKOCYTE ESTERASE, URINE AUTO NEGATIVE (NEGATIVE); NITRITE, URINE AUTO NEGATIVE (NEGATIVE); PROTEIN, URINE AUTO NEGATIVE (NEGATIVE); RBC, URINE AUTO 0 /HPF (0-3); SPECIFIC GRAVITY URINE AUTO 1.011 (1.002-1.035); SQUAMOUS EPITHELIAL CELL UR AU 1 /HPF (0-6); UROBILINOGEN, URINE AUTO 0.2 mg/dL (0.0-2.0); WBC, URINE AUTO 1 /HPF (0-3)
== END ==
LOC: M SMT 16:59
PROVIDERS: ATTEND Urology
DX: R35.1 Nocturia (principal)

== ENCOUNTER → 2024-08-30 | Outpatient (CLI) | payer OTHER ==
[~2024-08-30] MED LIST changes: -ADV100INH INH; +ADVA1AER8 INH
== END ==
LOC: M RAD 09:59
PROVIDERS: ATTEND Nurse Practitioner Family
DX: R42 Dizziness and giddiness (principal)

== ENCOUNTER → 2025-04-10 | Outpatient (CLI) | payer OTHER ==
[~2025-04-10] MED LIST changes: +DEPA250T PO; -DEPA250T2 PO; -LEVO50CA PO; +LEVO50CA2 PO; +PREG-35 PO; -PREG100CA PO; +PROZ10CA11 PO; -PROZ10CA7 PO
[2025-04-10 15:56] LABS: IRON (FE) 31 UG/DL (50-170); PERCENT SATURATION 10.2 % (13.2-45.0); THYROXINE (T4) 7.9 UG/DL (4.5-10.9)
[2025-04-10 15:57] LABS: ALT/SGPT 32 U/L (7.0-40); AST/SGOT 30 U/L (<34); CALCIUM LEVEL 9.5 MG/DL (8.5-10.1); CARBON DIOXIDE LEVEL 28 MMOL/L (20-31); CHLORIDE LEVEL 105 MMOL/L (98-107); CHOLESTEROL LEVEL 207 MG/DL (<200); CHOLESTEROL RISK RATIO 2.76 (<5); CREATININE FOR GFR 0.91 MG/DL (0.55-1.30); GLOMERULAR FILTRATION RATE 80.3 (>58); LDL CHOLESTEROL 116.5 MG/DL (<100); NON-HDL-C 132.1 MG/DL; POTASSIUM SERUM 4.5 MMOL/L (3.5-5.1); PROLACTIN 7.45 NG/ML; SODIUM LEVEL 142 MMOL/L (136-145); TOTAL 25(OH) VITAMIN D 35.9 NG/ML (20.0-100.0); TRIGLYCERIDES LEVEL 78 MG/DL (<150)
[2025-04-10 15:58] LABS: FREE T4 1.19 NG/DL (0.89-1.76); TESTOSTERONE 24 NG/DL (14-76)
[2025-04-10 15:59] LABS: VITAMIN B12 LEVEL 468 PG/ML (211-911)
[2025-04-10 16:05] LABS: BASO # 0.1 10^3/uL (0.0-0.2); BASO % 1.2 % (0.0-1.0); EOS # 0.2 10^3/uL (0.0-0.5); EOS % 3.4 % (0.0-3.0); LYMPH # 1.8 10^3/uL (1.5-5.0); LYMPH % 26.8 % (24.0-44.0); MONO # 0.7 10^3/uL (0.0-0.8); MONO % 9.7 % (2.0-8.0); NEUTROPHILS # 4.0 10^3/uL (1.5-8.5); NEUTROPHILS % 58.6 % (36.0-66.0); PLATELET COUNT, AUTOMATED 291 10^3/uL (150-450)
[2025-04-10 16:16] LABS: ESTIMATED AVERAGE GLUCOSE 103.0 MG/DL (60-110)
[2025-04-10 16:52] LABS: ERYTHROCYTE SEDIMENTATION RATE 2 mm/hr (0-20)
== END ==
LOC: M PLALAB 11:57
PROVIDERS: ATTEND Nurse Practitioner Family
DX: E78.5 Hyperlipidemia, unspecified (principal); I10 Essential (primary) hypertension; R53.83 Other fatigue

== ENCOUNTER → 2025-05-18 | Outpatient (CLI) | payer OTHER | LOC: M WHC 13:10 | PROVIDERS: ATTEND Nurse Practitioner Family | DX: Z12.31 Encounter for screening mammogram for malignant neoplasm of breast (principal); R92.323 Mammographic fibroglandular density, bilateral breasts ==